=== PATIENT | female | born 1960 | race Native Hawaiian/Other Pacific Islander ===

== ENCOUNTER → 2017-03-05 | Outpatient (CLI) | payer MEDICAID | LOC: BRMIMAGING 16:55 | PROVIDERS: ATTEND Physician Assistant | DX: M79.641 Pain in right hand (principal); M79.642 Pain in left hand | CPT/HCPCS: 73130-PO ==

== ENCOUNTER → 2017-08-08 | Outpatient (CLI) | payer MEDICAID | LOC: BRMIMAGING 14:37 | PROVIDERS: ATTEND Physician Assistant | DX: Z12.31 Encounter for screening mammogram for malignant neoplasm of breast (principal) | CPT/HCPCS: G0202 ==